=== PATIENT | female | born 1955 | race Two or more races ===

== ENCOUNTER 2018-01-06 09:34 | Inpatient (IN) | payer OTHER, SELFPAY ==
[2018-01-06] MEDS ORDERED: NA CHLORIDE 0.9% 1,000 ML ONE (09:52)
[2018-01-06 10:02] LABS: Absolute Lymphocytes (CBC) 1.3 K/uL (0.7-4.9); Absolute Monocytes 0.3 K/uL (0.1-1.3); Absolute Neutrophil 8.1 K/uL (1.8-8.0); Basophils % 0.2 % (0-1.3); Eosinophils % 0.3 % (0-4.4); Hematocrit 46.8 % (36.0-45.0); Lymphocytes % 13.5 % (15.3-44.8); MCH 31.2 pg (27.0-35.0); MCV 88.9 fL (80-100); MPV 9.4 fL (7.6-11.3); Monocytes % 3.4 % (3.3-12.3); RBC Red Blood Cell Count 5.27 M/uL (3.86-4.86)
--- NOTE | 2018-01-06 10:05 | RAD REPORT ---
EXAM DESCRIPTION: CT - Head Brain Wo Cont - 01/06/2018 9:57 am CLINICAL HISTORY: Left-sided weakness COMPARISON: None. TECHNIQUE: Axial 5 mm thick images of the head were obtained without IV contrast. All CT scans are performed using dose optimization technique as appropriate and may include automated exposure control or mA/KV adjustment according to patient size. FINDINGS: No intracranial hemorrhage, mass, edema or shift of mid-line structures. No acute cortical based infarction. No cortical edema or sulcal effacement. There is a 2 centimeter oval-shaped area d iminished attenuation that involves the right-side posterior limb internal capsule and lentiform nucl eus. In this location, this likely explains the patient's extremity weakness. No atrophy changes are measurable. Ventricles are normal. No abnormal extra-axial fluid collections. Physiologic and arteria l calcifications are present. Mastoid air cells and visualized portions of the paranasal sinuses are clear. No acute bony findings. 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 A CVA in this location would explain left extremity motor symptoms.
[2018-01-06 10:19] LABS: Protime INR 0.94
[2018-01-06 10:26] LABS: BUN Blood Urea Nitrogen 13 mg/dL (7-18); Bicarbonate 25 mmol/L (21-32); Sodium Level 131 mmol/L (136-145); Troponin (Emerg Dept Use Only) < 0.02 ng/mL (0.0-0.045)
[2018-01-06 10:41] LABS: Glucose Level 416 mg/dL (74-106)
--- NOTE | 2018-01-06 11:08 | RAD REPORT ---
EXAM DESCRIPTION: RAD - Chest Single View - 01/06/2018 10:09 am CLINICAL HISTORY: CHEST PAIN Chest pain. COMPARISON: No comparisons FINDINGS: Portable technique limits examination quality. Large calcified nodule is present right lung base. The lungs are otherwise clear. The heart is normal in size. No displaced fractures. IMPRESSION: No acute intrathoracic process suspected.
--- NOTE | 2018-01-06 11:20 | EDPHYS ---
Physician Documentation [facility] Name: Erik Muñoz Age: 62 yrs Sex: Female : 1955 Arrival Date: 01/06/2018 Time: 09:37 Bed 4 Private MD: ED Physician Allan Choi HPI: 01/06 11:11 This 62 yrs old Female presents to ER via Ambulatory with complaints of S/S rn of Possible Stroke. 11:11 The patient's problem is reported as weakness. Onset: The symptoms/episode rn began/occurred 2 day(s) ago. Duration: The episode is continuous. The symptoms are alleviated by nothing. The symptoms are aggravated by nothing. Severity of symptoms: At their worst the symptoms were mild in the emergency department the symptoms are unchanged. The patient has experienced a previous episode. REports 2 days of persistent left sided weakness and slurred speech, took aspirin at home, has happened before but resolved after about 30 min. . Historical: - Allergies: 09:50 Iodine; jl7 09:50 SHELLFISH; jl7 - Home Meds: 09:50 None [Active]; jl7 - PMHx: 09:50 None; jl7 - PSHx: 09:50 ; jl7 - Immunization history:: Adult Immunizations unknown. - Social history:: Smoking status: Patient/guardian denies using tobacco. - Ebola Screening: : No symptoms or risks identified at this time. - Family history:: not pertinent. - Hospitalizations: : No recent hospitalization is reported. ROS: 11:11 Constitutional: Negative for fever, chills, and weight loss, Eyes: Negative for injury, rn pain, redness, and discharge, Neck: Negative for injury, pain, and swelling, Cardiovascular: Negative for chest pain, palpitations, and edema, Respiratory: Negative for shortness of breath, cough, wheezing, and pleuritic chest pain, Abdomen/GI: Negative for abdominal pain, nausea, vomiting, diarrhea, and constipation, MS/Extremity: Negative for injury and deformity, Skin: Negative for injury, rash, and discoloration, Neuro: Negative for headache, numbness, tingling, and seizure. Exam: 11:11 Constitutional: This is a well developed, well nourished patient who is awake, alert, rn and in no acute distress. Head/Face: Normocephalic, atraumatic. Eyes: Pupils equal round and reactive to light, extra-ocular motions intact. Lids and lashes normal. Conjunctiva and sclera are non-icteric and not injected. Cornea within normal limits. Periorbital areas with no swelling, redness, or edema. Cardiovascular: Regular rate and rhythm with a normal S1 and S2. No gallops, murmurs, or rubs. Normal PMI, no JVD. No pulse deficits. Respiratory: Lungs have equal breath sounds bilaterally, clear to auscultation and percussion. No rales, rhonchi or wheezes noted. No increased work of breathing, no retractions or nasal flaring. Abdomen/GI: Soft, non-tender, with normal bowel sounds. No distension or tympany. No guarding or rebound. No evidence of tenderness throughout. Skin: Warm, dry with normal turgor. Normal color with no rashes, no lesions, and no evidence of cellulitis. MS/ Extremity: Pulses equal, no cyanosis. Neurovascular intact. Full, normal range of motion. Equal circumference. Neuro: Awake and alert, GCS 15, oriented to person, place, time, and situation. Strength 4/5 LUE/LLE with drift. Sensory grossly intact. + mild slurred speech. Vital Signs: 09:50 BP 181 / 79; Pulse 108; Resp 18 S; Pulse Ox 99% on R/A; Weight 47.63 kg (R); Height 4 7 ft. 11 in. (149.86 cm) (R); Pain 0/10; 11:00 BP 172 / 75; Pulse 97; Resp 16 S; Temp 98.7(O); Pulse Ox 99% on R/A; 7 12:00 BP 157 / 76; Pulse 90; Resp 16 S; Pulse Ox 99% on R/A; 7 13:00 BP 165 / 57; Pulse 89; Resp 16 S; Pulse Ox 100% on R/A; 7 09:50 Body Mass Index 21.21 (47.63 kg, 149.86 cm) [facility] NIH Stroke Scale Scores: 09:54 NIHSS Score: 3 MDM: 09:41 Patient medically screened. rn 11:11 Differential diagnosis: CVA, metabolic disorder. Data reviewed: vital signs, nurses rn notes, lab test result(s), EKG, radiologic studies, CT scan, and as a result, I will admit patient. Counseling: I had a detailed discussion with the patient and/or guardian regarding: the historical points, exam findings, and any diagnostic results supporting the discharge/admit diagnosis, lab results, radiology results, the need for further work-up and treatment in the hospital. Admission orders: after a detailed discussion of the patient's condition and case, the admit orders are written by me. 01/06 09:43 Order name: CBC with Diff; Complete Time: 10:26 rn 01/06 09:43 Order name: Basic Metabolic Panel rn 01/06 09:43 Order name: Protime (+inr); Complete Time: 10:26 rn 01/06 09:43 Order name: Ptt, Activated; Complete Time: 10:26 rn 01/06 09:43 Order name: Urine Microscopic Only rn 01/06 09:43 Order name: Troponin (emerg Dept Use Only) rn 01/06 09:43 Order name: Ketone, Serum rn 01/06 11:47 Order name: T4,Total EDCO 01/06 11:47 Order name: Thyroid Stimulating Hormone EDCO 01/06 11:47 Order name: Basic Metabolic Panel EDCO 01/06 11:47 Order name: Basic Metabolic Panel EDCO 01/06 11:47 Order name: Basic Metabolic Panel EDCO 01/06 11:47 Order name: Basic Metabolic Panel EDCO 01/06 11:47 Order name: CBC with Automated Diff EDMS 01/06 09:43 Order name: CT Head Brain wo Cont; Complete Time: 10:26 rn 01/06 09:43 Order name: XRAY Chest (1 view) rn 01/06 11:47 Order name: Echo with Doppler EDMS 01/06 11:47 Order name: CBC with Automated Diff EDMS 01/06 11:47 Order name: CBC with Automated Diff EDMS 01/06 11:47 Order name: CBC with Automated Diff EDMS 01/06 11:47 Order name: Lipid Profile EDMS 01/06 11:47 Order name: Lipid Profile EDMS 01/06 11:47 Order name: Magnesium EDMS 01/06 11:47 Order name: Magnesium EDMS 01/06 11:47 Order name: Magnesium EDMS 01/06 11:47 Order name: Magnesium EDMS 01/06 11:49 Order name: Stroke Protocol EDMS 01/06 11:49 Order name: Chest Pa And Lat (2 Views) EDCO 01/06 11:49 Order name: Carotid Artery Bilateral EDCO 01/06 11:51 Order name: Hemoglobin A1c EDCO 01/06 09:43 Order name: IV Start; Complete Time: 09:51 rn 01/06 09:43 Order name: EKG; Complete Time: 09:44 rn 01/06 09:43 Order name: EKG - Nurse/Tech; Complete Time: 09:44 rn 01/06 09:43 Order name: Glucose Level; Complete Time: 09:43 rn 01/06 11:47 Order name: Physical Therapy Consult [facility] 01/06 11:47 Order name: Social Service Consult [facility] 01/06 11:47 Order name: NPO EDCO 01/06 11:47 Order name: EKG Electrocardiogram [facility]CO 01/06 11:49 Order name: Speech Therapy Consult [facility] 01/06 11:49 Order name: Patient Safety Orders EDCO Administered Medications: 09:45 Drug: NS 0.9% 1000 ml Route: IV; Rate: 1000 ml; Site: right antecubital; aa5 11:00 Follow up: Response: No adverse reaction; IV Status: Completed infusion jl7 11:48 Drug: Insulin Regular Human 5 units {Co-Signature: maykel (Matt White RN).} Route: Sub-Q; jl7 Site: right upper arm; 14:07 Follow up: Response: No adverse reaction jl7 Point of Care Testing: Blood Glucose: 09:41 Blood Glucose: 362 mg/dL; aa5 Ranges: Critical Glucose Levels:Adult <50 mg/dl or >400 mg/dl <40 mg/dl or >180 mg/dl Disposition: 01/06/18 11:19 Hospitalization ordered by Brody Jara for Inpatient Admission. Preliminary diagnosis are Weakness, Hyperglycemia, unspecified, Non-hemorrhagic CVA. - Bed requested for Telemetry/MedSurg (Inpatient). - Status is Inpatient Admission. jl7 - Condition is Stable. - Problem is new. - Symptoms are unchanged. UTI on Admission? No NIH Stroke Scale - NIH Stroke Score Date: 01/06/2018 Time: 09:54 Total Score = 3 1a. Level of Consciousness (LOC) - 0(Alert) 1b. Level of Consciousness (LOC) (Year \T\ Age) - 0(Both) 1c. LOC Commands (Open \T\ Closes Eyes/Computer Forensics Investigator) - 0(Both) 2. Best Gaze (Lateral Gaze Paresis) - 0(Normal) 3. Visual Field Loss - 0(No visual loss) 4. Facial Palsy - 0(Normal) 5a. Left Arm: Motor (10-second hold) - 1(Drift) 5b. Right Arm: Motor (10-second hold) - 0(No drift) 6a. Left Leg: Motor (5-second hold - always test supine) - 1(Drift) 6b. Right Leg: Motor (5-second hold - always test supine) - 0(No drift) 7. Limb Ataxia (finger/nose \T\ heel/bonner - test with eyes open) - 0(Absent) 8. Sensory Loss (pinprick arms/legs/face) - 0(Normal) 9. Best Language: Aphasia (description/naming/reading) - 0(No aphasia) 10. Dysarthria (speech clarity - read or repeat words) - 1(Mild to Moderate) 11. Extinction and Inattention (visual/tactile/auditory/spatial/personal) - 0(No abnormality) Initials: jl7 Signatures: Dispatcher [employer] EDMS Allan Choi MD MD rn Calderon, Audri, RN RN aa5 Zee Hubbard RN RN jl7 Steff Almonte RN sg Corrections: (The following items were deleted from the chart) 12:28 11:19 Hospitalization Ordered by Brody Jara DO for Inpatient Admission. eb Preliminary diagnosis is Weakness; Hyperglycemia, unspecified; Non-hemorrhagic CVA. Bed requested for Telemetry/MedSurg (Inpatient). Status is Inpatient Admission. Condition is Stable. Problem is new. Symptoms are unchanged. UTI on Admission? No. rn 14:16 12:28 01/06/2018 11:19 Hospitalization Ordered by Brody Jara DO for jl7 Inpatient Admission. Preliminary diagnosis is Weakness; Hyperglycemia, unspecified; Non-hemorrhagic CVA. Bed requested for Telemetry/MedSurg (Inpatient). Status is Inpatient Admission. Condition is Stable. Problem is new. Symptoms are unchanged. UTI on Admission? No. eb
--- NOTE | 2018-01-06 11:20 | ER ---
Nurse's Notes [facility] Name: Erik Muñoz Age: 62 yrs Sex: Female : 1955 Arrival Date: 01/06/2018 Time: 09:37 Bed 4 Private MD: Diagnosis: Weakness;Hyperglycemia, unspecified;Non-hemorrhagic CVA Presentation: 01/06 09:47 Presenting complaint: Patient states: Wednesday I started having tingling all over and jl7 left sided weakness, it feels like I'm leaning to the left when I'm walking. Transition of care: patient was not received from another setting of care. No acute neurological deficit is noted. Pre-hospital glucose is not applicable to this patient. Onset of symptoms was January 04, 2018. Risk Assessment: Do you want to hurt yourself or someone else? Patient reports no desire to harm self or others. Initial Sepsis Screen: Does the patient meet any 2 criteria? No. Patient's initial sepsis screen is negative. Does the patient have a suspected source of infection? No. Patient's initial sepsis screen is negative. Care prior to arrival: None. 09:47 Method Of Arrival: Ambulatory 7 09:47 Acuity: DURAN 3 jl7 Triage Assessment: 09:50 The onset of the patients symptoms was January 04, 2018 at 12:00. General: Appears in jl7 no apparent distress. uncomfortable, Behavior is calm, cooperative, appropriate for age. Pain: Denies pain. EENT: No signs and/or symptoms were reported regarding the EENT system. Neuro: Level of Consciousness is awake, alert, obeys commands, Oriented to person, place, time, situation, Gait is unsteady, Speech is slurred, Reports weakness. Cardiovascular: Patient's skin is warm and dry. Respiratory: Airway is patent Respiratory effort is even, unlabored, Respiratory pattern is regular, symmetrical. GI: Reports nausea, Patient currently denies diarrhea, vomiting. : No signs and/or symptoms were reported regarding the genitourinary system. Derm: Skin is pink, warm \T\ dry. Musculoskeletal: No signs and/or symptoms reported regarding the musculoskeletal system. Stroke Activation: Symptom onset > 6 hours Physician: Stroke Attending; Name: ; Notified At: ; Arrived At: Physician: Chief Stroke Resident; Name: ; Notified At: ; Arrived At: Physician: Stroke Resident; Name: ; Notified At: ; Arrived At: Physician: ED Attending; Name: ; Notified At: ; Arrived At: Physician: ED Resident; Name: ; Notified At: ; Arrived At: Historical: - Allergies: 09:50 Iodine; jl7 09:50 SHELLFISH; jl7 - Home Meds: 09:50 None [Active]; jl7 - PMHx: 09:50 None; jl7 - PSHx: 09:50 ; jl7 - Immunization history:: Adult Immunizations unknown. - Social history:: Smoking status: Patient/guardian denies using tobacco. - Ebola Screening: : No symptoms or risks identified at this time. - Family history:: not pertinent. - Hospitalizations: : No recent hospitalization is reported. Screenin:54 Abuse screen: Denies threats or abuse. Denies injuries from another. Nutritional jl7 screening: No deficits noted. Tuberculosis screening: No symptoms or risk factors identified. Fall Risk IV access (20 points). Gait- Weak (10 pts.). Total [place] Fall Scale indicates Low Risk Score (25-44 pts). Fall prevention measures have been instituted. Side Rails Up X 2 Placed close to Nursing Station Frequent Obs/Assesments occuring Family Present and informed to notify staff if they need to leave bedside As available Patient and Family Educated on Fall Prevention Program and strategies. Assessment: 09:54 The patient has not been NPO before screening. The patient is currently on the jl7 following diet: Regular The patient is alert, and able to follow commands. The patient exhibits slurred or garbled speech. Provider notified of the indication for Speech Therapy consult. The patient is not exhibiting difficulty speaking. The patient does not exhibit difficulty understanding words. The patient is able to swallow own secretions with no drooling or need for suction. Patient tolerated one teaspoon of water. No drooling, immediate coughing, gurgling, or clearing of the throat was noted. The patient tolerated 90mL of water. No drooling, immediate coughing, gurgling, or clearing of the throat was noted. The patient passed the bedside swallow screening. Oral medications may be given as ordered. Contact Physician for further diet orders. Provider notified of bedside swallow screening results: Allan Choi MD. T-PA (Activase) Screening: Contraindications: Patient reports onset of signs and symptoms of stroke greater than 6 hours ago: Yes. General: See triage assessment. 11:00 Reassessment: Patient appears in no apparent distress at this time. No changes from jl7 previously documented assessment. Patient and/or family updated on plan of care and expected duration. Pain level reassessed. Patient is alert, oriented x 3, equal unlabored respirations, skin warm/dry/pink. 12:00 Reassessment: Patient and/or family updated on plan of care and expected duration. Pain jl7 level reassessed. Patient is alert, oriented x 3, equal unlabored respirations, skin warm/dry/pink. 13:05 Reassessment: Pt to MRI. jl7 Vital Signs: 09:50 BP 181 / 79; Pulse 108; Resp 18 S; Pulse Ox 99% on R/A; Weight 47.63 kg (R); Height 4 jl7 ft. 11 in. (149.86 cm) (R); Pain 0/10; 11:00 BP 172 / 75; Pulse 97; Resp 16 S; Temp 98.7(O); Pulse Ox 99% on R/A; jl7 12:00 BP 157 / 76; Pulse 90; Resp 16 S; Pulse Ox 99% on R/A; jl7 13:00 BP 165 / 57; Pulse 89; Resp 16 S; Pulse Ox 100% on R/A; jl7 09:50 Body Mass Index 21.21 (47.63 kg, 149.86 cm) jl7 NIH Stroke Scale Scores: 09:54 NIHSS Score: 3 jl7 ED Course: 09:37 Patient arrived in ED. aa5 09:41 Allan Choi MD is Attending Physician. rn 09:43 Inserted saline lock: 20 gauge in right antecubital area, using aseptic technique. aa5 ,using aseptic technique. IV inserted by Matt White RN Blood collected. 09:47 Zee Hubbard RN is Primary Nurse. jl7 09:47 Initial lab(s) drawn, by co, sent to lab. Inserted saline lock: 20 gauge in right sg antecubital area, using aseptic technique. Blood collected. 09:49 Triage completed. jl7 09:50 Arm band placed on right wrist. Patient placed in an exam room, on a stretcher, on jl7 case monitor, on pulse oximetry. 09:54 Patient has correct armband on for positive identification. Placed in gown. Bed in low jl7 position. Call light in reach. Side rails up X 1. monitor tech on. Pulse ox on. NIBP on. Warm blanket given. 09:56 CT completed. Patient tolerated procedure well. Patient moved to CT via stretcher. sj Patient moved back from CT. 09:57 CT Head Brain wo Cont In Process Unspecified. EDMS 10:07 X-ray completed. Patient tolerated procedure well. Patient moved back from radiology. ls3 10:08 XRAY Chest (1 view) In Process Unspecified. EDMS 11:13 EKG done, by technical asst. reviewed by Allan Choi MD. at1 11:19 Brody Jara DO is Hospitalizing Provider. rn 13:14 Patient moved to MRI via wheelchair. ka 14:06 MRI completed. Patient tolerated well. Patient moved back from MRI. ka 14:06 No provider procedures requiring assistance completed. Patient admitted, IV remains in jl7 place. intact, No redness/swelling at site. Administered Medications: 09:45 Drug: NS 0.9% 1000 ml Route: IV; Rate: 1000 ml; Site: right antecubital; aa5 11:00 Follow up: Response: No adverse reaction; IV Status: Completed infusion jl7 11:48 Drug: Insulin Regular Human 5 units {Co-Signature: maykel (Matt White RN).} Route: Sub-Q; jl7 Site: right upper arm; 14:07 Follow up: Response: No adverse reaction jl Point of Care Testing: Blood Glucose: 09:41 Blood Glucose: 362 mg/dL; aa5 Ranges: Outcome: 11:19 Decision to Hospitalize by Provider. rn 14:06 Admitted to Tele accompanied by family peterson with patient, via wheelchair, room 428, [facility] with chart, Report called to PEDRO Neff 14:06 Condition: stable 14:06 Discharge instructions given to patient, family, Instructed on the need for admit, Demonstrated understanding of instructions. 14:16 Patient left the ED. jl7 NIH Stroke Scale - NIH Stroke Score Date: 01/06/2018 Time: 09:54 Total Score = 3 1a. Level of Consciousness (LOC) - 0(Alert) 1b. Level of Consciousness (LOC) (Year \T\ Age) - 0(Both) 1c. LOC Commands (Open \T\ Closes Eyes/Verification Manager) - 0(Both) 2. Best Gaze (Lateral Gaze Paresis) - 0(Normal) 3. Visual Field Loss - 0(No visual loss) 4. Facial Palsy - 0(Normal) 5a. Left Arm: Motor (10-second hold) - 1(Drift) 5b. Right Arm: Motor (10-second hold) - 0(No drift) 6a. Left Leg: Motor (5-second hold - always test supine) - 1(Drift) 6b. Right Leg: Motor (5-second hold - always test supine) - 0(No drift) 7. Limb Ataxia (finger/nose \T\ heel/bonner - test with eyes open) - 0(Absent) 8. Sensory Loss (pinprick arms/legs/face) - 0(Normal) 9. Best Language: Aphasia (description/naming/reading) - 0(No aphasia) 10. Dysarthria (speech clarity - read or repeat words) - 1(Mild to Moderate) 11. Extinction and Inattention (visual/tactile/auditory/spatial/personal) - 0(No abnormality) Initials: [email or web address] Signatures: Dispatcher [employer] EDMatt Brewster, RN RN Kalie Nicholson Roman, MD MD rn Calderon, Audri RN RN aa5 Charlene Lawson, combination welder apprentice EKG Tat1 Nat Valdovinos Jahala, RN RN jl7 Chintan Lennon ls3 Matt White RN sg Corrections: (The following items were deleted from the chart) 11:50 11:48 Insulin Regular Human 5 units Sub-Q in right upper abdomen rob jl7 13:14 13:14 Patient moved to MRI via stretcher. alin ogden
[2018-01-06] MEDS ORDERED: ACETAMINOPHEN 500 MG TAB PO PRN (11:38)
[2018-01-06] MEDS ORDERED: ONDANSETRON 4 MG/2 ML VIAL IV PRN (11:38)
[2018-01-06] MEDS ORDERED: HYDRALAZINE HCL 20 MG/ML VIAL IV PRN (11:38)
[2018-01-06] MEDS ORDERED: INSULIN -REGULAR HUMAN 50 UNIT/0.5 ML ML ONE (11:52)
--- NOTE | 2018-01-06 12:45 | RAD REPORT ---
EXAM DESCRIPTION: US - CP - 01/06/2018 12:25 pm CLINICAL HISTORY: CVA-R. lentiform nucleus/Post. Limb int. capsule COMPARISON: No comparisons TECHNIQUE: Real-time sonographic evaluation of both carotid systems was performed. Doppler interroga tion was performed with waveform tracing bilaterally. FINDINGS: Normal high resistance waveforms are noted in both external carotid arteries. The common c arotid arteries and internal carotid arteries show normal low resistance waveforms. Mild atherosclerotic hard plaquing is seen in the right carotid bulb. Peak systolic and end diastolic velocity values and the ICA/CCA ratios are in the non-hemodynamically significant range. Antegrade flow seen in both vertebral arteries. IMPRESSION: Mild atherosclerotic plaquing is noted right carotid bulb. No evidence of a hemodynamically significant stenosis.
[2018-01-06 13:52] LABS: T4,Total 11.5 ug/dL (4.8-13.9); Thyroid Stimulating Hormone 1.58 uIU/mL (0.360-3.740)
[2018-01-06] MEDS ORDERED: D50W 25 GM/50 ML SYRINGE IV PRN (14:36)
[2018-01-06] MEDS ORDERED: GLUCAGON 1 MG/VIAL IM PRN (14:36)
--- NOTE | 2018-01-06 14:46 | RAD REPORT ---
EXAM DESCRIPTION: MRI - MRA Head Wo Cont - 01/06/2018 2:08 pm CLINICAL HISTORY: CVA, abnormal CT head exam COMPARISON: CT head same date, MRI head MRA neck same date TECHNIQUE: Axial and coronal 3D [id number] image acquisition was performed. 3D rotational images were generated with source and reconstruction images reviewed. Horizontal and vertical axis rotation al views generated using MIP protocol. FINDINGS: Major venous sinuses are patent. No aneurysm or vascular malformation. No vasculitis or diffuse vascular process seen. No basilar artery stenosis or acute finding. No significant disease in the posterior cerebral artery distributions. There is bilateral narrowing of the distal A1 segment of each anterior cerebral artery . More distally the anterior cerebral arteries are unremarkable. No significant middle cerebral arter y distribution abnormality. There is mild narrowing in the left MCA M1 segment. The small perforating vessels supplying the area of acute CVA are typically not identifiable on MRA imaging. IMPRESSION: No major vessel occlusion identifiable. The small perforating vessels typically supplyin g the area of acute CVA are usually not MRA visible. Atherosclerotic change in the distal anterior cerebral artery A1 segments. No vasculitis, aneurysm or vascular malformation.
--- NOTE | 2018-01-06 14:50 | RAD REPORT ---
EXAM DESCRIPTION: MRI - Brain W/Wo Cont - 01/06/2018 2:08 pm CLINICAL HISTORY: Left extremity weakness, abnormal CT study COMPARISON: CT head same date TECHNIQUE: Sagittal and axial T1-weighted images were obtained. Axial PD/heavily T2-weighted and T2- FLAIR images were obtained along with axial DWI/ADC mapping sequences. Coronal heavily T2 weighted s equence obtained. Axial and coronal post-contrast T1-weighted images were also obtained. A 12 ml Mul tihance contrast following utilized. FINDINGS: Diffusion imaging shows abnormal hyperintense signal in the posterior limb internal capsul e on the right extending into the lentiform nucleus and continuing superiorly into the deep periventr icular white matter of the right cerebral hemisphere. This location involves motor pathways and would explain focal left extremity CVA symptoms. No hemorrhage is present. There is no localized mass effe ct. There is corresponding diminished signal on ADC mapping and hyperintense T2/IR signal. No other a kirti of diffusion signal to indicate additional sites of acute CVA. No significant atrophy. Patient do es not have significant or measurable chronic ischemic change. Ventricles are normal. No midline shift. Signal voids are seen as a normal finding in the major intra cranial vessels. Post-contrast images show normal enhancement. No dural thickening. Mastoid air cells and paranasal sinuses are clear. IMPRESSION: Acute nonhemorrhagic CVA in the right posterior limb internal capsule, lentiform nucleus and deep periventricular white matter. CVA involves motor pathways and this would explain left extre mity neurologic deficit. No intracranial hemorrhage. No other sites of acute CVA. No significant atrophy or chronic ischemic c hange.
--- NOTE | 2018-01-06 14:52 | RAD REPORT ---
EXAM DESCRIPTION: MRI - MRA Neck W/Wo Cont - 01/06/2018 2:07 pm CLINICAL HISTORY: Right cerebral CVA symptoms, abnormal CT and MRI imaging COMPARISON: CT head same date, MRI same date TECHNIQUE: MR angiography of the cervical vasculature performed. Coronal imaging plane acquisition u tilized. A 12 MultiHance contrast volume was utilized. Coronal reformatted images were generated and reviewed. Vertical axis 3D rotational projections obtained using maximum intensity projection protoco l. FINDINGS: Aortic arch is 3 vessel configuration. No origin stenoses. Vertebral arteries are codomina nt with no origins stenoses seen. No dissection in the cervical vasculature. Minimal narrowing at the common carotid bulb junction bilaterally. No hemodynamically significant stenosis. Internal carotid artery's without dissection or stenosis. IMPRESSION: Negative MRA neck examination.
--- NOTE | 2018-01-06 15:53 | P.HP ---
Certification for Inpatient Patient admitted to: Inpatient With expected LOS: >2 Midnights Patient will require the following post-hospital care: Rehabilitation Practitioner: I am a practitioner with admitting privileges, knowledge of patient current condition, hospital course, and medical plan of care. Services: Services provided to patient in accordance with Admission requirements found in Title 42 Section 412.3 of the Code of Federal Regulations Patient History Date of Service: 01/06/18 Primary Care Provider: None Reason for admission: Left-sided weakness History of Present Illness: 62-year-old [place] female presented emergency room with left-sided weakness and paresthesias. Patient reports on Wednesday she started to have some left-sided weakness. There was some question of slurred speech. She thought that she had a viral infection. This resolved. She also reported some dizziness and lightheadedness. The following day a she was slightly better. She still had some dizziness. She came to the ER today for continued left- sided weakness. She was having trouble with her balance. There is history of hypertension and TIA in the past. In the ER patient evaluated. CT scan revealed acute nonhemorrhagic CVA to the right lentiform new callus and posterior limb internal capsule. White count 9.8 , hemoglobin 16. Sodium 131, potassium 4.0. Blood pressure slightly elevated. Troponin unremarkable. Chest x-ray unremarkable. Patient admitted for further evaluation. When I saw the patient ER, she appeared comfortable. Some left-sided weakness still noted. She does not smoke or drink. She does not take any medication. 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 She is . She has no children. - Family History Mother -: Diabetes Father -: Heart disease - Social History Smoking Status: Never smoker Alcohol use: No CD- Drugs: No Caffeine use: Yes Place of Residence: Home Review of Systems General: Weakness, As per HPI Eyes: Unremarkable ENT: Unremarkable Respiratory: Unremarkable Cardiovascular: Light Headedness, As per HPI Gastrointestinal: Unremarkable Genitourinary: Unremarkable Musculoskeletal: As per HPI Integumentary: Unremarkable Neurological: Weakness, As per HPI Lymphatics: Unremarkable Physical Examination - Vital Signs Temperature: 98.7 F Blood Pressure: 165/57 Pulse: 89 Respirations: 16 - Physical Exam General: Alert, In no apparent distress, Oriented x3, Cooperative HEENT: Atraumatic, Normocephalic, PERRLA, Mucous membr. moist/pink Neck: Supple, No Thyromegaly Respiratory: Clear to auscultation bilaterally, Normal air movement Cardiovascular: Normal pulses, Regular rate/rhythm Gastrointestinal: Normal bowel sounds, Soft and benign, Non-distended, No tenderness, No masses, No rebound, No guarding Musculoskeletal: No erythema, No tenderness, No warmth Integumentary: No tenderness/swelling, No erythema, No cyanosis Neurological: Normal speech, Normal tone, Abnormal strength (Left-sided weakness noted to the upper and lower extremity. 4/5 noted.), Abnormal sensation (Mild paresthesias noted to the left side.) - Studies Laboratory Data (last 24 hrs) 01/06/18 09:50: PT 11.1, INR 0.94, APTT 29.7 01/06/18 09:50: Sodium 131 L, Potassium 4.0, BUN 13, Creatinine 0.80, Glucose 416 H* 01/06/18 09:50: WBC 9.8, Hgb 16.4 H, Hct 46.8 H, Plt Count 285 Assessment and Plan - Plan Impression: Left-sided weakness and paresthesias secondary to acute nonhemorrhagic CVA in the right posterior limb internal capsule, lentiform nucleus, and deep periventricular white matter Hypertension Diabetes mellitus type 2, new diagnosis Plan: Left-sided weakness and paresthesias secondary to acute nonhemorrhagic CVA in the right posterior limb internal capsule, lentiform nucleus, and deep periventricular white matter: Patient will be admitted. Will continue with stroke protocol. Patient to be on DVT prophylaxis, aspirin, Plavix, Lipitor. Will have physical therapy, occupational therapy and speech assess patient. Patient would be a good candidate for inpatient rehab. Neurology consulted to further assess. Await further recommendation. Hypertension: Will provide medication IV. Will try to maintain systolic blood pressure around 160-180. Diabetes mellitus type 2, new diagnosis: Will check A1c. Will place on sliding scale. Patient will require medication at discharge. Discharge Plan: Other (Inpatient rehab) Plan to discharge in: 48 Hours - Advance Directives Does patient have a Living Will: No Does patient have a Durable POA for Healthcare: No - Code Status/Comfort Care Code Status Assessed: Yes (Patient is full code.) Time Spent Managing Pts Care (In Minutes): 55
[2018-01-06 16:08] VITALS: BMI 21.2
[2018-01-06] MEDS: NA CHLORIDE 0.9% 1,000 ML IV SCH (16:18)
[2018-01-06] MEDS: INSULIN -REGULAR HUMAN 50 UNIT/0.5 ML ML SQ SCH ×2 (16:30→20:39)
[2018-01-06] MEDS: INSULIN GLARGINE 100 UNITS/ML SQ SCH (17:00)
--- NOTE | 2018-01-06 17:19 | ECHO ---
HEIGHT: 4 ft 11 in WEIGHT: 105 lb 0 oz DATE OF STUDY: 01/06/[address]: 2-DIMENSIONAL: YES M.MODE: YES DOPPLER: YES COLOR FLOW: YES TDS: NO PORTABLE: NO DEFINITY: NO BUBBLE STUDY: NO DIAGNOSIS: CEREBRAL VASCULAR ACCIDENT CARDIAC HISTORY: CATHERIZATION: NO SURGERY: NO PROSTHETIC VALVE: NO PACEMAKER: NO MEASUREMENTS (cm) DIASTOLIC (NORMALS) SYSTOLIC (NORMALS) IVSd 1.0 (0.6-1.2) LA Diam 2.6 (1.9-4.0) LVEF 51% LVIDd 3.9 (3.5-5.7) LVIDs 2.9 (2.0-3.5) %FS 26% LVPWd 0.9 (0.6-1.2) Ao Diam 2.4 (2.0-3.7) 2 DIMENSIONAL ASSESSMENT: RIGHT ATRIUM: NORMAL LEFT ATRIUM: NORMAL RIGHT VENTRICLE: NORMAL LEFT VENTRICLE: NORMAL TRICUSPID VALVE: NORMAL MITRAL VALVE: NORMAL PULMONIC VALVE: NORMAL AORTIC VALVE: NORMAL PERICARDIAL EFFUSION: NONE AORTIC ROOT: NORMAL LEFT VENTRICULAR WALL MOTION: NORMAL DOPPLER/COLOR FLOW: IMPAIRED LEFT VENTRICULAR RELAXATION. TRACE AORTIC REGURGITATION. COMMENTS: NORMAL 2D ECHOCARDIOGRAM WITH DOPPLER. IMPAIRED LEFT VENTRICULAR RELAXATION. TRACE AORTIC REGURGITATION. TECHNOLOGIST: ERUM JONES RDCS
[2018-01-06] MEDS: ENOXAPARIN 40 MG/0.4 ML SQ SCH (17:47)
[2018-01-06] MEDS ORDERED: INFLUENZA VACCINE (for 3y+) 0.5 ML DOSE IMVAC ONE (18:00)
[2018-01-06] MEDS: ATORVASTATIN 40 MG TAB PO SCH (20:38)
[2018-01-06] MEDS: FAMOTIDINE 20 MG TAB PO SCH (20:38)
--- NOTE | 2018-01-06 22:09 | EKG ---
Test Date: 2018-01-06 Test Time: 09:41:50 Marine Design Engineer: ADÁN MEASUREMENT RESULTS: Intervals: Rate: 109 DC: 168 QRSD: 90 QT: 356 QTc: 479 [place]: P: 59 DC: 168 QRS: 32 T: 26 INTERPRETIVE STATEMENTS: Sinus tachycardia Nonspecific ST and T wave abnormality Abnormal ECG No previous ECG available for comparison Electronically Signed On 01-06-18 22:08:31 CDT by aMrcelo Torrez
[2018-01-07] MEDS: NA CHLORIDE 0.9% 1,000 ML IV SCH (01:02)
[2018-01-07 05:08] LABS: Absolute Lymphocytes (CBC) 2.3 K/uL (0.7-4.9); Absolute Monocytes 0.4 K/uL (0.1-1.3); Absolute Neutrophil 2.6 K/uL (1.8-8.0); Basophils % 0.5 % (0-1.3); Eosinophils % 1.7 % (0-4.4); Hematocrit 38.8 % (36.0-45.0); Lymphocytes % 41.8 % (15.3-44.8); MCH 31.2 pg (27.0-35.0); MCV 87.5 fL (80-100); Monocytes % 7.2 % (3.3-12.3); RBC Red Blood Cell Count 4.43 M/uL (3.86-4.86)
[2018-01-07 05:31] LABS: BUN Blood Urea Nitrogen 10 mg/dL (7-18); Bicarbonate 25 mmol/L (21-32); Glucose Level 159 mg/dL (74-106); HDL Cholesterol 39 mg/dL (40-60); LDL Cholesterol, Calculated 151 (<130); Potassium 3.6 mmol/L (3.5-5.1); Sodium Level 141 mmol/L (136-145)
[2018-01-07] MEDS: INSULIN -REGULAR HUMAN 50 UNIT/0.5 ML ML SQ SCH ×4 (07:30→21:07)
[2018-01-07] MEDS: CLOPIDOGREL 75 MG TABLET PO SCH (08:53)
[2018-01-07] MEDS: FAMOTIDINE 20 MG TAB PO SCH ×2 (08:53→21:07)
[2018-01-07] MEDS: ASPIRIN EC 81 MG TAB PO SCH (08:53)
--- NOTE | 2018-01-07 12:40 | P.PN ---
Subjective Date of Service: 01/07/18 Primary Care Provider: None Chief Complaint: Left-sided weakness Subjective: Improving (Patient reports improvement in left-sided weakness.) Physical Examination - Vital Signs Temperature: 97.1 F Blood Pressure: 139/79 Pulse: 83 Respirations: 18 Pulse Ox (%): 98 - Physical Exam General: Alert, In no apparent distress, Oriented x3, Cooperative HEENT: Atraumatic Neck: Supple Respiratory: Clear to auscultation bilaterally, Normal air movement Cardiovascular: Normal pulses, Regular rate/rhythm Gastrointestinal: Normal bowel sounds, Soft and benign, Non-distended, No tenderness, No masses, No rebound, No guarding Musculoskeletal: No tenderness, No warmth Neurological: Normal speech, Normal tone, Normal affect, Abnormal strength ( Improvement to the left-sided weakness noted.) - Studies Medications List Reviewed: Yes Assessment & Plan Discharge Plan: Home Plan to discharge in: 24 Hours (to 48 hours) Physician Review Additional Text: Impression: Left-sided weakness and paresthesias secondary to acute nonhemorrhagic CVA in the right posterior limb internal capsule, lentiform nucleus, and deep periventricular white matter Hyperlipidemia Diabetes mellitus type 2, new diagnosis, A1c 11.6 Carotid arterial disease Elevated blood pressure, suspect hypertension Plan: Left-sided weakness and paresthesias secondary to acute nonhemorrhagic CVA in the right posterior limb internal capsule, lentiform nucleus, and deep periventricular white matter: Patient reports improvement in left-sided weakness. Patient work with physical therapy. Will continue with aspirin, Plavix and Lipitor. Echocardiogram unremarkable. Patient on DVT prophylaxis. Occupational therapy and speech therapy to assess. Patient desires to go home at discharge. Await further recommendations from neurology. Anticipate discharge in the next 1-2 days depending on her mobility status. Will monitor blood pressure closely. Hyperlipidemia: Will continue with Lipitor. Total triglycerides 383, total cholesterol 267, LDL 151, HDL 39. Lifestyle modification education addressed. Diabetes mellitus type 2, new diagnosis, A1c 11.6.: Will continue with insulin sliding scale. Patient on basal insulin. Will start metformin. Anticipate discharge on metformin only. Will monitor closely. Will make adjustments. Carotid arterial disease: Carotid Doppler shows some mild plaque. Will continue with above recommendation. Elevated blood pressure, suspect hypertension: Will monitor blood pressure closely. Patient may require low-dose RAOUL-inhibitor at discharge. Time Spent Managing Pts Care (In Minutes): 55
[2018-01-07] MEDS: METFORMIN HCL 500 MG TAB PO SCH (17:30)
[2018-01-07] MEDS: INSULIN GLARGINE 100 UNITS/ML SQ SCH (17:30)
[2018-01-07] MEDS: ENOXAPARIN 40 MG/0.4 ML SQ SCH (17:30)
[2018-01-07] MEDS: ATORVASTATIN 40 MG TAB PO SCH (21:07)
[2018-01-08 05:35] LABS: Absolute Lymphocytes (CBC) 2.7 K/uL (0.7-4.9); Absolute Monocytes 0.5 K/uL (0.1-1.3); Basophils % 0.4 % (0-1.3); Eosinophils % 1.8 % (0-4.4); Hematocrit 38.4 % (36.0-45.0); Lymphocytes % 42.5 % (15.3-44.8); MCH 31.2 pg (27.0-35.0); MCV 87.7 fL (80-100); MPV 9.4 fL (7.6-11.3); Monocytes % 7.5 % (3.3-12.3); RBC Red Blood Cell Count 4.37 M/uL (3.86-4.86)
[2018-01-08 05:48] LABS: BUN Blood Urea Nitrogen 13 mg/dL (7-18); Bicarbonate 27 mmol/L (21-32); Glucose Level 135 mg/dL (74-106); Magnesium 1.9 mg/dL (1.8-2.4); Potassium 3.2 mmol/L (3.5-5.1); Sodium Level 142 mmol/L (136-145)
[2018-01-08] MEDS: INSULIN -REGULAR HUMAN 50 UNIT/0.5 ML ML SQ SCH ×2 (07:30→11:30)
[2018-01-08] MEDS: METFORMIN HCL 500 MG TAB PO SCH (08:12)
[2018-01-08 08:51] VITALS: O2SAT 94
[2018-01-08] MEDS: CLOPIDOGREL 75 MG TABLET PO SCH (09:00)
[2018-01-08] MEDS: ASPIRIN EC 81 MG TAB PO SCH (09:00)
[2018-01-08] MEDS: FAMOTIDINE 20 MG TAB PO SCH (09:00)
--- NOTE | 2018-01-08 12:28 | P.DS ---
Admission Date: 01/06/18 Discharge Date: 01/08/18 Primary Care Provider: None Disposition: ROUTINE DISCHARGE Discharge Condition: GOOD Reason for Admission: Left-sided weakness Consultations: Neurology-Dr. Bravo Procedures: MRI Brain: COMPARISON: CT head same date TECHNIQUE: Sagittal and axial T1-weighted images were obtained. Axial PD/ heavily T2-weighted and T2-FLAIR images were obtained along with axial DWI/ADC mapping sequences. Coronal heavily T2 weighted sequence obtained. Axial and coronal post-contrast T1-weighted images were also obtained. A 12 ml Multihance contrast following utilized. FINDINGS: Diffusion imaging shows abnormal hyperintense signal in the posterior limb internal capsule on the right extending into the lentiform nucleus and continuing superiorly into the deep periventricular white matter of the right cerebral hemisphere. This location involves motor pathways and would explain focal left extremity CVA symptoms. No hemorrhage is present. There is no localized mass effect. There is corresponding diminished signal on ADC mapping and hyperintense T2/IR signal. No other area of diffusion signal to indicate additional sites of acute CVA. No significant atrophy. Patient does not have significant or measurable chronic ischemic change. Ventricles are normal. No midline shift. Signal voids are seen as a normal finding in the major intracranial vessels. Post-contrast images show normal enhancement. No dural thickening. Mastoid air cells and paranasal sinuses are clear. IMPRESSION: Acute nonhemorrhagic CVA in the right posterior limb internal capsule, lentiform nucleus and deep periventricular white matter. CVA involves motor pathways and this would explain left extremity neurologic deficit. No intracranial hemorrhage. No other sites of acute CVA. No significant atrophy or chronic ischemic change. MRI/MRA Brain: COMPARISON: CT head same date, MRI head MRA neck same date TECHNIQUE: Axial and coronal 3D then-pu-dmkfil image acquisition was performed. 3D rotational images were generated with source and reconstruction images reviewed. Horizontal and vertical axis rotational views generated using MIP protocol. FINDINGS: Major venous sinuses are patent. No aneurysm or vascular malformation. No vasculitis or diffuse vascular process seen. No basilar artery stenosis or acute finding. No significant disease in the posterior cerebral artery distributions. There is bilateral narrowing of the distal A1 segment of each anterior cerebral artery. More distally the anterior cerebral arteries are unremarkable. No significant middle cerebral artery distribution abnormality. There is mild narrowing in the left MCA M1 segment. The small perforating vessels supplying the area of acute CVA are typically not identifiable on MRA imaging. IMPRESSION: No major vessel occlusion identifiable. The small perforating vessels typically supplying the area of acute CVA are usually not MRA visible. Atherosclerotic change in the distal anterior cerebral artery A1 segments. No vasculitis, aneurysm or vascular malformation. MRA Neck: COMPARISON: CT head same date, MRI same date TECHNIQUE: MR angiography of the cervical vasculature performed. Coronal imaging plane acquisition utilized. A 12 MultiHance contrast volume was utilized. Coronal reformatted images were generated and reviewed. Vertical axis 3D rotational projections obtained using maximum intensity projection protocol. FINDINGS: Aortic arch is 3 vessel configuration. No origin stenoses. Vertebral arteries are codominant with no origins stenoses seen. No dissection in the cervical vasculature. Minimal narrowing at the common carotid bulb junction bilaterally. No hemodynamically significant stenosis. Internal carotid artery's without dissection or stenosis. IMPRESSION: Negative MRA neck examination. ECHO: EF-51% LEFT VENTRICULAR WALL MOTION: NORMAL DOPPLER/COLOR FLOW: IMPAIRED LEFT VENTRICULAR RELAXATION. TRACE AORTIC REGURGITATION. COMMENTS: NORMAL 2D ECHOCARDIOGRAM WITH DOPPLER. IMPAIRED LEFT VENTRICULAR RELAXATION. TRACE AORTIC REGURGITATION. Carotid Doppler: COMPARISON: No comparisons TECHNIQUE: Real-time sonographic evaluation of both carotid systems was performed. Doppler interrogation was performed with waveform tracing bilaterally. FINDINGS: Normal high resistance waveforms are noted in both external carotid arteries. The common carotid arteries and internal carotid arteries show normal low resistance waveforms. Mild atherosclerotic hard plaquing is seen in the right carotid bulb. Peak systolic and end diastolic velocity values and the ICA/CCA ratios are in the non -hemodynamically significant range. Antegrade flow seen in both vertebral arteries. IMPRESSION: Mild atherosclerotic plaquing is noted right carotid bulb. No evidence of a hemodynamically significant stenosis. Medical problem list: Left-sided weakness and paresthesias secondary to acute nonhemorrhagic CVA in the right posterior limb internal capsule, lentiform nucleus, and deep periventricular white matter Hyperlipidemia Diabetes mellitus type 2, new diagnosis, A1c 11.6 Carotid arterial disease Hypertension Brief History of Present Illness: 62-year-old [place] female presented emergency room with left-sided weakness and paresthesias. Patient reports on Wednesday she started to have some left-sided weakness. There was some question of slurred speech. She thought that she had a viral infection. This resolved. She also reported some dizziness and lightheadedness. The following day a she was slightly better. She still had some dizziness. She came to the ER today for continued left- sided weakness. She was having trouble with her balance. There is history of hypertension and TIA in the past. In the ER patient evaluated. CT scan revealed acute nonhemorrhagic CVA to the right lentiform new callus and posterior limb internal capsule. White count 9.8 , hemoglobin 16. Sodium 131, potassium 4.0. Blood pressure slightly elevated. Troponin unremarkable. Chest x-ray unremarkable. Patient admitted for further evaluation. When I saw the patient ER, she appeared comfortable. Some left-sided weakness still noted. She does not smoke or drink. She does not take any medication. Hospital Course: Patient presented to the emergency room with left-sided weakness and paresthesias. Patient found to have acute nonhemorrhagic CVA in the right posterior limb internal capsule, lentiform nucleus and deep periventricular white matter. Patient was started on stroke protocol. Patient had been taking aspirin. New medication-Plavix, Lipitor was added. The patient was monitored closely. Neurology was consulted. Her condition improved. Patient was able to ambulate appropriately. Improvement in left left-sided weakness and paresthesias was noted. Carotid Doppler showed some plaque but no significant stenosis. Echocardiogram unremarkable. At discharge patient will go home. She will continue with physical therapy exercises and recommendations. Fall precautions in place. At discharge she will continue with aspirin 81 mg daily, Plavix 75 mg 1 pill daily, and Lipitor 40 mg daily. Recommendation is for the patient follow up with neurology in 1-2 weeks to monitor her progress. No driving is recommended at this time. Patient will need to follow up with neurology to determine when she can go back to work. Patient found to have hyperlipidemia. LDL elevated at 151. Patient started on medication. At discharge she will continue with Lipitor 40 mg 1 pill daily. This can be further monitored and addressed by her PCP. Patient has diabetes mellitus type 2. This is a new diagnosis. Hemoglobin A1c 11.6. Dietary and lifestyle modification education was provided. At discharge she will continue with metformin 1000 mg 1 pill twice daily. Recommendation is to maintain blood sugars less than 140 fasting and less than 200 after meals. Further adjustment and/or Additional medication may be required in the future. This can be further addressed by her PCP. Patient has carotid arterial disease. No significant stenosis noted. Patient will continue with new medication. Patient has hypertension. At discharge she will continue with lisinopril 5 mg daily. Recommendation is to maintain blood pressures less 150/80. Further adjustment can be done by Neurology or her PCP in the near future. Vital Signs/Physical Exam: Temp Pulse Resp BP Pulse Ox 97.5 F 78 20 150/68 H 100 01/08/18 08:00 01/08/18 08:00 01/08/18 08:00 01/08/18 08:00 01/08/18 08:00 General: Alert, In no apparent distress, Oriented x3, Cooperative HEENT: Atraumatic, Mucous membr. moist/pink Neck: Supple Respiratory: Clear to auscultation bilaterally, Normal air movement Cardiovascular: Normal pulses, Regular rate/rhythm Gastrointestinal: Normal bowel sounds, Soft and benign, Non-distended, No tenderness, No masses, No rebound, No guarding Musculoskeletal: No erythema, No tenderness, No warmth Integumentary: No tenderness/swelling, No erythema, No warmth, No cyanosis Neurological: Normal speech, Normal strength at 5/5 x4 extr, Normal tone, Normal affect Laboratory Data at Discharge: WBC 6.4 K/uL (4.3-10.9) D 01/08/18 04:52 Hgb 13.6 g/dL (12.0-15.0) 01/08/18 04:52 Hct 38.4 % (36.0-45.0) 01/08/18 04:52 Plt Count 210 K/uL (152-406) 01/08/18 04:52 PT 11.1 SECONDS (9.5-12.5) 01/06/18 09:50 INR 0.94 01/06/18 09:50 APTT 29.7 SECONDS (24.3-36.9) 01/06/18 09:50 Sodium 142 mmol/L (136-145) 01/08/18 04:52 Potassium 3.2 mmol/L (3.5-5.1) L 01/08/18 04:52 BUN 13 mg/dL (7-18) 01/08/18 04:52 Creatinine 0.50 mg/dL (0.55-1.3) L 01/08/18 04:52 Glucose 135 mg/dL (74-106) H 01/08/18 04:52 Magnesium 1.9 mg/dL (1.8-2.4) 01/08/18 04:52 Triglycerides 383 mg/dL (<150) H 01/07/18 04:41 Cholesterol 267 mg/dL (<200) H 01/07/18 04:41 HDL Cholesterol 39 mg/dL (40-60) L 01/07/18 04:41 Cholesterol/HDL Ratio 6.85 01/07/18 04:41 Home Medications: Aspirin 81 mg PO DAILY #30 tab.chew 01/08/18 Atorvastatin Calcium [Lipitor] 40 mg PO BEDTIME #30 tab 01/08/18 Clopidogrel Bisulfate [Plavix*] 75 mg PO DAILY #30 tablet 01/08/18 Lisinopril [Prinivil*] 5 mg PO DAILY #30 tab 01/08/18 Metformin HCl 1,000 mg PO BID #60 tablet 01/08/18 New Medications: Aspirin 81 mg PO DAILY #30 tab.chew Atorvastatin Calcium [Lipitor] 40 mg PO BEDTIME #30 tab Clopidogrel Bisulfate [Plavix*] 75 mg PO DAILY #30 tablet Lisinopril [Prinivil*] 5 mg PO DAILY #30 tab Metformin HCl 1,000 mg PO BID #60 tablet Patient Discharge Instructions: 1. Patient will need to establish care with a PCP in the area to follow up this hospitalization and continue her care. 2. Patient presented to the emergency room with left-sided weakness and paresthesias. Patient found to have acute nonhemorrhagic CVA in the right posterior limb internal capsule, lentiform nucleus and deep periventricular white matter. Patient was started on stroke protocol. Patient had been taking aspirin. New medication-Plavix, Lipitor was added. The patient was monitored closely. Neurology was consulted. Her condition improved. Patient was able to ambulate appropriately. Improvement in left left-sided weakness and paresthesias was noted. Carotid Doppler showed some plaque but no significant stenosis. Echocardiogram unremarkable. At discharge patient will go home. She will continue with physical therapy exercises and recommendations. Fall precautions in place. At discharge she will continue with aspirin 81 mg daily, Plavix 75 mg 1 pill daily, and Lipitor 40 mg daily. Recommendation is for the patient follow up with neurology in 1-2 weeks to monitor her progress. No driving is recommended at this time. Patient will need to follow up with neurology to determine when she can go back to work. 3. Patient found to have hyperlipidemia. LDL elevated at 151. Patient started on medication. At discharge she will continue with Lipitor 40 mg 1 pill daily. This can be further monitored and addressed by her PCP. 4. Patient has diabetes mellitus type 2. This is a new diagnosis. Hemoglobin A1c 11.6. Dietary and lifestyle modification education was provided. At discharge she will continue with metformin 1000 mg 1 pill twice daily. Recommendation is to maintain blood sugars less than 140 fasting and less than 200 after meals. Further adjustment and/or Additional medication may be required in the future. This can be further addressed by her PCP. 5. Patient has carotid arterial disease. No significant stenosis noted. Patient will continue with new medication. 6. Patient has hypertension. At discharge she will continue with lisinopril 5 mg daily. Recommendation is to maintain blood pressures less 150/80. Further adjustment can be done by Neurology or her PCP in the near future. Diet: ADA Activity: Fall precautions Time spent managing pt's care (in minutes): 55
[2018-01-08 12:50] VITALS: BP 163/70
[2018-01-08 13:24] VITALS: TEMP 97.6
[2018-01-08] MEDS ORDERED: METFORMIN HCL 500 MG TAB PO SCH (17:00)
--- NOTE | 2018-01-09 01:04 | CON ---
Consultation called because of stroke. 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 Onset consisted of left-sided weakness, tingling, and noting that she would fall to the left when walking. Her left face was twisted. However, despite these findings, the patient did not come in initially to be evaluated at the time of onset. On the 06 of January, she had a brain MRI, which identified a nonhemorrhagic stroke in the right posterior limb of the internal capsule including the lentiform nucleus and deep periventricular white matter, stroke. She was noncompliant managing her medical issues and had very elevated blood sugars. She denies past medical history of high blood pressures as well. She did take aspirin at home and in the emergency room. Her NIH Stroke Scale in the emergency room was 3. She did say there was some mild recovery in her left- sided weakness and numbness once she is in the emergency room. Past Medical History: She denies significant past medical history. Medications: No regular medications. Past Surgical History: . Allergies: SHELLFISH. Home Medications: None. Review of Systems: She denies any recent fevers, chills, nausea, vomiting, myalgias or arthralgias , headache or weight change. She did report feeling very stressed recently, taking care of an ill person, actually a relative. Physical Examination: Vital Signs: Blood pressure 163/70, pulse 92, respiratory rate 18, temperature 97.6, oxygen saturation 99%. Weight 105 pounds, height 4 feet 11 inches, BMI 21.2. General: Ms. Muñoz is resting comfortably in bed. She is in no acute distress. HEENT: She is normocephalic, atraumatic. Sclera is anicteric. Oropharynx is moist and pink. Neck: Supple. Chest: Clear. Heart: Regular. Extremities: Show no edema, cyanosis, or clubbing. Neurological: She is alert and oriented to person, place, and situation. She has no expressive or receptive aphasias. In terms of cranial nerves, she has a mild decrease on the left nasolabial fold with great excursions. Sensory exam of the face is intact bilaterally. Motor examination, she has subtle weakness in the left upper extremity at 4+/5 compared to the right, 5/5 in the lower extremities, similarly so she has 4+/5 weakness compared to 5/5 in the right. Slight decreased to light touch and temperature in the left arm and leg compared to the right side. Coordination intact in the right upper and lower extremities. On the left, mild dysmetria noted on [id number] and heel-to- bonner. Her gait, she tends to drift to the left when ambulating and has difficulty with tandem gait as well. An extra scale of 5. Laboratory Studies: White blood cell count 6.4, hemoglobin 13.6, hematocrit 38.4, platelets 210. INR 0.94. Chemistries show slightly low potassium of 3.0 , chloride 108, carbon dioxide 27, sodium 142, BUN 13, creatinine 0.5, glucose ranged from 171-269. Calcium 8.5. Magnesium 1.9. Hemoglobin A1c is 11.6. Triglycerides elevated at 383, cholesterol elevated at 267, LDL cholesterol 151 , HDL cholesterol low at 39. The cholesterol to HDL ratio was elevated to 6.85. Her acetone level is small. Her carotid artery ultrasound showed mild atherosclerotic plaque in the right carotid bulb. No evidence of hemodynamically significant stenosis. Her echocardiogram showed ejection fraction of 51% and is a normal study except for aortic regurgitation. Electrocardiogram showed sinus tachycardia, nonspecific ST and T-wave abnormalities. Magnetic resonance angiogram of the neck is unremarkable and the brain MRA showed no major vessel occlusion, small perforating vessels typically supplying area of acute stroke are noted to not show up on MRA. Assessment: Ms. Muñoz is a 62-year-old patient with untreated hypertension, diabetes, dyslipidemia, and lacunar stroke in the posterior limb of the right internal capsule producing left-sided face, arm, and leg numbness and weakness with incoordination and poor gait. Plan: 1. The patient should be on aspirin 81 mg daily, folate 1 mg daily, high dose statin in addition to RAOUL inhibitor, and aggressive management of diabetes mellitus. She was told of the importance of managing her diet, her exercise, her hydration, and reducing the risk of stroke. 2. The patient may benefit from outpatient physical therapy. 3. She may follow up with Dr. Bravo in 1 month after discharge. FLORA Voice ID: [id number] Report ID: [id number] SANJAY
[2018-01-09] MEDS ORDERED: LISINOPRIL 5 MG TAB PO SCH (09:00)
== END 2018-01-08 14:39 | disposition home or self-care (01) | DRG 65 ==
LOC: ER 09:34 → ERHOLD 11:22 → 4TH 14:06
PROVIDERS: ADMIT Family Medicine; ATTEND Family Medicine
DX: I63.9 Cerebral infarction, unspecified (principal); G81.94 Hemiplegia, unspecified affecting left nondominant side; E78.5 Hyperlipidemia, unspecified; E11.9 Type 2 diabetes mellitus without complications; I10 Essential (primary) hypertension; I77.89 Other specified disorders of arteries and arterioles
CPT/HCPCS: 36415; 70450; 70544; 70549; 70553; 71045; 80048; 80061; 82010; 82962; 83036; 83735; 84436; 84443; 84484; 85025; 85610; 85730; 93005; 93306; 93880; 96360; 96372; 97163; 99285; A9577; J1650; J7030